=== PATIENT | male | born 1955 | race Caucasian/White ===

== ENCOUNTER → 2023-02-08 11:31 | Outpatient (CLI) | payer MEDICARE, OTHER, SELFPAY ==
--- NOTE | 2023-02-08 11:33 | DI.RAD.S_ITS ---
PROCEDURE: XR HIP W PEL IF DONE RT 2V INDICATIONS: right hip pain TECHNIQUE: AP pelvis with lateral view of the right hip. COMPARISON: None. FINDINGS: Bones: No acute fractures or dislocations. Pelvic ring appears intact. No suspicious bony lesions. Hhwe-mm-ywpgsume degenerative changes are seen in the hips bilaterally. Soft tissues: The visualized bowel gas pattern is normal. No suspicious soft tissue calcifications. IMPRESSION: Wkao-pu-fgedgetd symmetric osteoarthrosis of the hips bilaterally. Approved by: Jacoby Valdivia M.D. on 02/08/2023 at 14:50
--- NOTE | 2023-02-08 11:33 | DI.RAD.S_ITS ---
PROCEDURE: XR KNEE RT 3V INDICATIONS: right knee pain TECHNIQUE: Three views of the knee were acquired. COMPARISON: None. FINDINGS: Bones: No acute fractures or dislocations. No suspicious bony lesions. Moderate joint space narrowing is seen at the patellofemoral joint with mild lateral patellar subluxation. Soft tissues: No joint effusion. No suspicious soft tissue calcifications. IMPRESSION: Moderate osteoarthrosis involving the patellofemoral compartment. Mild lateral patellar subluxation. Approved by: Jacoby Valdivia M.D. on 02/08/2023 at 14:51
[2023-02-08 13:02] LABS: Hematocrit 43.7 % (41-53); Hemoglobin 14.7 g/dL (13.5-17.5); Mean Corpuscular HGB Conc 33.7 % (30-36); Platelet Count 225 X10^3/uL (150-400); Red Blood Cell Count 4.75 X10^6/uL (4.5-5.9); Red Cell Distribution Width 12.9 % (11.6-14.8); White Blood Cell Count 6.1 X10^3/uL (4.5-11.0)
[2023-02-08 13:24] LABS: Alanine Aminotransferase 31 IU/L (<50); Albumin 4.8 g/dL (3.5-5.0); Albumin Globulin Ratio 1.6 (1.0-2.8); Alkaline Phosphatase 75 U/L (38-126); Aspartate Aminotransferase 39 IU/L (17-59); BUN Creatinine Ratio 28.3 (6-22); Bilirubin Total 1.1 mg/dL (0.2-1.3); Blood Urea Nitrogen 28 mg/dL (9-20); Calcium 9.5 mg/dL (8.4-10.2); Carbon Dioxide 29 mmol/L (22-32); Chloride 102 mmol/L (98-107); Cholesterol 153 mg/dL (140-199); Estimated Glomerular Filt Rate > 60 mL/min (>60); Glucose 98 mg/dL (80-110); HDL Cholesterol 67 mg/dL (40-60); HEMOLYSIS < 15 (0-50); LDL Cholesterol Calculated 66 mg/dL (<100); Potassium 4.4 mmol/L (3.4-5.1); Sodium 138 mmol/L (137-145); Total Protein 7.8 g/dL (6.3-8.2); Triglycerides 99 mg/dL (35-150)
[2023-02-08 13:50] LABS: TSH w/ Reflex to FT4 3.96 uIU/mL (0.47-4.68)
[2023-02-10 07:15] LABS: Lipoprotein (a) 207.8 nmol/L (<75.0)
== END ==
PROVIDERS: PCP Internal Medicine; Referring Provider Internal Medicine; Visit Provider Internal Medicine
DX: M17.11 Unilateral primary osteoarthritis, right knee (principal); S83.011A Lateral subluxation of right patella, initial encounter; M16.0 Bilateral primary osteoarthritis of hip; E78.2 Mixed hyperlipidemia; R97.20 Elevated prostate specific antigen [PSA]; E78.41 Elevated Lipoprotein(a); I10 Essential (primary) hypertension
CPT/HCPCS: 36415; 73502; 73562; 80053; 80061; 83695; 84153; 84443; 85027

== ENCOUNTER 2023-07-03 11:50 | Emergency (ER) | payer MEDICARE, OTHER, SELFPAY ==
[2023-07-03 11:57] VITALS: BP 148/84; PULSE 84; RESP 16; TEMP 36.7; O2SAT 99; BMI 27.7
--- NOTE | 2023-07-03 12:21 | DI.RAD.S_ITS ---
PROCEDURE: XR LUMBAR SPINE 2-3V INDICATIONS: fall/pain TECHNIQUE: 3 views of the lumbar spine were acquired. COMPARISON: None. FINDINGS: Bones: Trace anterolisthesis of L4 on L5. Nubz-el-ealfnjbw degenerative changes with osteophytes, disc space height loss, and facet arthropathy. There may be pars defects at L5. No acute appearing vertebral body height loss. Soft tissues: Pelvic phleboliths. IMPRESSION: Sykz-ou-lisbxbox degenerative changes. Possible pars defects at L5. If there is high concern for further derangement, consider MRI evaluation. Dictated by: Oskar Polo M.D. on 07/03/2023 at 13:27 Approved by: Oskar Polo M.D. on 07/03/2023 at 13:28
--- NOTE | 2023-07-03 12:21 | DI.RAD.S_ITS ---
PROCEDURE: XR SACRUM COCCYX MIN 2V INDICATIONS: fall/pain TECHNIQUE: 3 views of the sacrum and coccyx acquired. COMPARISON: None. FINDINGS: Bones: No displaced fracture or dislocation. Soft tissues: Pelvic phleboliths. IMPRESSION: No acute radiographic abnormality. If there is high concern for occult injury, consider repeat radiography or cross-sectional imaging. Dictated by: Oskar Polo M.D. on 07/03/2023 at 13:28 Approved by: Oskar Polo M.D. on 07/03/2023 at 13:28
[2023-07-03 14:41] VITALS: BP 153/79; PULSE 76; RESP 18; O2SAT 99
--- NOTE | 2023-07-03 14:43 | ED.BACK ---
HPI - Back Pain/Injury <Nathan Perkins PA-C - Last Filed: 07/03/23 14:49> General Chief Complaint: Back Pain/Injury Stated Complaint: FELL DOWN STAIRS/TAILBONE INJ Time Seen by Provider: 07/03/23 13:55 Source: patient History of Present Illness HPI Narrative: 67-year-old male presents to the ED status post a mechanical fall sustained yesterday night. Patient states that he accidentally slipped and coming down a step, landing on his bottom and bounced for a couple steps. Patient complains of pain in the sacrum and feels a spasm in the muscles around it. Patient denies numbness, tingling, weakness, saddle paresthesias, urinary hesitancy, urinary incontinence, bowel incontinence. Patient states he has not taken any medicine for the pain. Patient states that the pain is worse when he is sitting and when he is changing positions from sitting to standing. Related Data Home Medications Medication Instructions Recorded Confirmed alirocumab 75 mg/mL subcutaneous 75 mg SUBCUT Q2W 02/08/23 02/08/23 pen injector (Praluent Pen) ezetimibe 10 mg tablet 10 mg PO DAILY 02/08/23 02/08/23 Allergies Allergy/AdvReac Type Severity Reaction Status Date / Time rosuvastatin [From Crestor] AdvReac Mild Muscle Pain Verified 02/08/23 10:35 simvastatin AdvReac Mild Muscle Pain Verified 02/08/23 10:35 Review of Systems <Nahtan Perkins PA-C - Last Filed: 07/03/23 14:49> Constitutional Constitutional: Denies chills, Denies fatigue, Denies fever(s), Denies frequent falls, Denies lethargy and Denies weakness Eyes Eyes: Denies change in vision, Denies eye discharge, Denies irritation and Denies loss of vision ENT Ears, Nose, Mouth, and Throat: Denies change in voice, Denies dizziness, Denies neck pain, Denies sore throat and Denies throat swelling Cardiovascular Cardiovascular: Denies chest pain, Denies irregular heart rhythm, Denies lightheadedness, Denies palpitations, Denies dyspnea, Denies dyspnea on exertion and Denies orthopnea Respiratory Respiratory: Denies cough, Denies dyspnea, Denies dyspnea on exertion and Denies wheezing Gastrointestinal Gastrointestinal: Denies abdominal pain, Denies change in bowel habits, Denies diarrhea, Denies nausea and Denies vomiting Musculoskeletal Musculoskeletal: Denies neck pain and Denies numbness Comments: Pain in the tailbone Integumentary/Breasts Skin/Breast: Denies pruritus, Denies erythema, Denies rash and Denies wounds Neurologic Neurologic: Denies behavioral changes, Denies confusion, Denies dizziness, Denies frequent falls, Denies loss of vision, Denies numbness and Denies weakness Psychiatric Psychiatric: Denies anxiety, Denies behavioral changes, Denies confusion, Denies depression, Denies homicidal ideation and Denies suicidal ideation Endocrine Endocrine: Denies fatigue, Denies flushing and Denies palpitations Hematologic/Lymphatic Hematologic/Lymphatic: Denies easy bruising Allergic/Immunologic Allergic/Immunologic: Denies urticaria, Denies throat swelling and Denies wheezing Patient History <Nathan Perkins PA-C - Last Filed: 07/03/23 14:49> Medical History Elevated prostate specific antigen (PSA) Primary osteoarthritis involving multiple joints Essential hypertension Elevated lipoprotein A level Mixed hyperlipidemia Social History details: , step-children, 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 Smoking Status: Never smoker Smoking Status: Never smoker alcohol intake frequency: 3 or more drinks per day Substance Use Type: does not use Exam <Nathan Perkins PA-C - Last Filed: 07/03/23 14:49> Narrative Exam Narrative: Const General:?cooperative, healthy appearing and comfortable [facility] Head:?normal to inspection Ears:?hearing grossly normal bilaterally Nose:?external nose normal Face and sinus:?normal facial exam and sinuses nontender Mouth:?oral mucosae normal Throat:?posterior oropharynx normal Eyes General:?appearance normal, both eyes and all related structures Neck Neck:?normal visual inspection and no lymphadenopathy noted Resp Effort & Inspection:?normal respiratory effort Auscultation:?clear to auscultation bilaterally Cardio Rate:?regular rate Rhythm:?regular rhythm Musculoskeletal No midline tenderness to palpation. There is full range of motion. Strength and sensation is intact. Patient is neurovascularly intact. Neuro General:?patient alert, patient awake and patient oriented x3 Initial Vital Signs Initial Vital Signs: Vital Signs Temperature 98.1 F 07/03/23 11:57 Pulse Rate 84 07/03/23 11:57 Respiratory Rate 16 07/03/23 11:57 Blood Pressure 148/84 H 07/03/23 11:57 Pulse Oximetry 99 07/03/23 11:57 Oxygen Delivery Method Room Air 07/03/23 11:57 <DO Joel Meléndez Last Filed: 07/11/23 00:30> Initial Vital Signs Initial Vital Signs: Vital Signs Temperature 98.1 F 07/03/23 11:57 Pulse Rate 84 07/03/23 11:57 Respiratory Rate 16 07/03/23 11:57 Blood Pressure 148/84 H 07/03/23 11:57 Pulse Oximetry 99 07/03/23 11:57 Oxygen Delivery Method Room Air 07/03/23 11:57 Course <Nathan Perkins PA-C - Last Filed: 07/03/23 14:49> Orders Ordered: ED Orders 07/03/23 12:21 XR lumbar spine 2-3V Stat XR sacrum coccyx min 2V Stat Vital Signs Vital signs: Vital Signs - 8 hr 07/03/23 11:57 Temperature 98.1 F Pulse Rate 84 Respiratory Rate 16 Blood Pressure 148/84 H Pulse Oximetry 99 Oxygen Delivery Method Room Air <DO Joel Meléndez Last Filed: 07/11/23 00:30> Orders Ordered: ED Orders 07/03/23 12:21 XR lumbar spine 2-3V Stat XR sacrum coccyx min 2V Stat Vital Signs Vital signs: Vital Signs - 8 hr 07/03/23 11:57 Temperature 98.1 F Pulse Rate 84 Respiratory Rate 16 Blood Pressure 148/84 H Pulse Oximetry 99 Oxygen Delivery Method Room Air MDM - Back Pain/Injury <DOMONIQUE Miller Last Filed: 07/03/23 14:49> MDM Narrative Medical decision making narrative: 67-year-old male presents to the ED status post a mechanical fall sustained yesterday night. Concern for fracture/dislocation versus musculoskeletal sprain/strain versus other. Obtained x-ray which shows no acute findings. Discussed findings with patient. Recommend ibuprofen, Tylenol, Flexeril. Prescribed Flexeril. Recommend follow-up with PCP as soon as possible. ED return precautions discussed with patient. Patient verbalized understanding. Medical records reviewed: Yes Discharge Plan Departure Patient Disposition: Home Clinical Impression: Lower back pain Qualifiers: Chronicity: acute Back pain laterality: unspecified Sciatica presence: without sciatica Qualified Code(s): M54.50 - Low back pain, unspecified Instructions: DI for Back Strain or Sprain Activity Restrictions/Additional Instructions: You were evaluated in the ED today for a lower back injury. Your x-ray does not show any fractures or dislocations. Your symptoms are likely due to a musculoskeletal sprain/strain. You may take Tylenol or ibuprofen for the pain. You are also being prescribed muscle relaxants that you may take for symptom relief. Please follow-up with your PCP as soon as possible. Return to the ED if you experience any worsening symptoms, numbness, tingling, weakness. Prescriptions: No Action ezetimibe 10 mg tablet 10 mg PO DAILY Praluent Pen 75 mg/mL pen injector 75 mg SUBCUT Q2W Referrals: Syed Borja MD [Primary Care Provider] - Stand Alone Forms: Patient Portal/API ED Sign-out <Gely Hardy DO - Last Filed: 07/11/23 00:30> Cosign ED Attending Chandrika Attestation: I was immediately available in the department for consultation.
== END 2023-07-03 14:49 | disposition home or self-care (01) ==
PROVIDERS: Emergency Provider Student in an Organized Health Care Education/Training Program; PCP Internal Medicine
DX: M54.50 Low back pain, unspecified (principal); W01.0XXA Fall on same level from slipping, tripping and stumbling without subsequent striking against object, initial encounter
CPT/HCPCS: 72100; 72220; 99281; 99283

== ENCOUNTER → 2023-08-13 15:35 | Outpatient (CLI) | payer MEDICARE, OTHER, SELFPAY ==
[2023-08-13 17:34] LABS: Hemoglobin A1C% w Est Avg Glu 5.5 % (4.0-6.0)
[2023-08-13 17:40] LABS: Glucose 89 mg/dL (80-110)
[2023-08-13 18:11] LABS: TSH w/ Reflex to FT4 3.42 uIU/mL (0.47-4.68)
[2023-08-13 21:44] LABS: Vitamin B12 432 pg/mL (239-931)
[2023-08-16 11:35] LABS: Albumin 3.9 g/dL (2.9-4.4); Alpha-1-Globulin 0.3 g/dL (0.0-0.4); Alpha-2-Globulin 0.6 g/dL (0.4-1.0); Globulin Total 2.9 g/dL (2.2-3.9); Protein, Total 6.8 g/dL (6.0-8.5)
== END ==
PROVIDERS: PCP Internal Medicine; Referring Provider Internal Medicine; Visit Provider Internal Medicine
DX: R77.9 Abnormality of plasma protein, unspecified (principal); R73.01 Impaired fasting glucose; E53.8 Deficiency of other specified B group vitamins
CPT/HCPCS: 36415; 82607; 82947; 83036; 84155; 84165; 84443

== ENCOUNTER → 2023-10-09 08:28 | Outpatient (CLI) | payer MEDICARE, OTHER, SELFPAY | PROVIDERS: PCP Internal Medicine; Referring Provider Internal Medicine Cardiovascular Disease; Visit Provider Internal Medicine Cardiovascular Disease | DX: I10 Essential (primary) hypertension (principal); I45.10 Unspecified right bundle-branch block; I44.0 Atrioventricular block, first degree | CPT/HCPCS: 36415; 83735 ==

== ENCOUNTER → 2023-11-26 13:50 | Outpatient (CLI) | payer MEDICARE, OTHER, SELFPAY ==
--- NOTE | 2023-11-26 13:51 | DI.ECHO.S_ITS ---
[facility] +---------+ [facility] +---------+ : : [address] : : : : [id number] : : : : Phone: [phone]+ Echocardiogram Report + + :Name: BALAJI CHOUDHARY Study Date: 11/26/2023 Height: 73 in : :[facility] ReadingLocation: Weight: 220 lb : : Gender: Male BSA: 2.2 m2 : :: 1955 Age: 68 yrs BP: 131/76 mmHg: :Reason For Study: ATRIOVENTRICULAR BLOCK : :Ordering Physician: HUMBERTO, : :ROCÍO Performed By: Trudy Davis : :Referring: ROCÍO PAUL : + + Interpretation Summary The left ventricle is normal in size and wall thickness. The left ventricular ejection fraction is normal. The ejection fraction is estimated to be 65-70%. The right ventricle is normal in size and function. No significant valvular pathology seen. The IVC is of normal diameter and collapses less than 50% with a sniff. This suggests a right atrial pressure of 8 mm Hg. Procedure: A two-dimensional transthoracic echocardiogram with color flow and Doppler was performed. The study quality was technically adequate. There is no prior echocardiogram noted for this patient. The patient was in sinus rhythm with heart rates between 63-68 bpm during the exam. Left Ventricle: The left ventricle is normal in size and wall thickness. There is no thrombus. The ejection fraction is estimated to be 65-70%. The left ventricular ejection fraction is normal. There are no focal wall motion abnormalities. Diastolic parameters suggest probable normal left ventricular diastolic function and normal filling pressures. Right Ventricle: The right ventricle is normal in size and function. Atria: The left atrial size is normal. Right atrial size is normal. There is no Doppler evidence for an interatrial shunt. Mitral Valve: The mitral valve leaflets are mildly calcified. There is mild mitral annular calcification. There is no mitral regurgitation noted. Aortic Valve: The aortic valve is trileaflet. The aortic valve opens well. The aortic valve is mildly calcified. There is discrete nodular thickening of the non- coronary cusp. There is no aortic valve stenosis. No aortic regurgitation is present. Tricuspid Valve: The tricuspid valve is normal in structure and function. Pulmonary artery pressures cannot be estimated because of the lack of a measurable TR jet velocity. There is a trace or physiologic amount of tricuspid regurgitation. Pulmonic Valve: The pulmonic valve leaflets are thin and pliable; valve motion is normal. There is no pulmonic valvular regurgitation. Great Vessels: The aortic root is normal size. The dimensions of the ascending aorta are normal. The IVC is of normal diameter and collapses less than 50% with a sniff. This suggests a right atrial pressure of 8 mm Hg. Pericardium/ Pleura There is no pericardial effusion. There is no pleural effusion. MMode/2D Measurements & Calculations LVIDd: 4.4 cm LVOT diam: 2.2 cm LVIDs: 2.7 cm Ao root diam: 3.4 cm FS: 39.6 % asc Aorta Diam: 3.5 cm IVSd: 0.70 cm Ao Arch Diam (Prox Trans): 3.2 cm LVPWd: 0.85 cm LV landeros. diameter/BSA (cm/m^2): 2.0 LV sys. diameter/BSA (cm/m^2): 1.2 LA A2 area: 17.1 cm2 RA long axis: 5.0 cm LA A4 area: 17.5 cm2 RA area: 17.6 cm2 LA length (vol): 5.3 cm RA vol: 52.6 ml LA vol: 48.0 ml RA : 23.5 ml/m2 LA vol index: 21.4 ml/m2 IVC diam: 2.1 cm RVD1 (basal): 3.2 cm RVD2 (mid): 2.9 cm TAPSE: 1.9 cm Doppler Measurements & Calculations Ao V2 max: 154.7 cm/sec LVOT Max Mikhail: 125.7 cm/sec Ao V2 mean: 112.2 cm/sec LV V1 max P.3 mmHg Ao max P.6 mmHg LV V1 VTI: 25.8 cm Ao mean P.5 mmHg IBAN(I,D): 3.3 cm2 Ao V2 VTI: 30.3 cm IBAN(V,D): 3.1 cm2 sev ratio: 0.85 IBAN indexed to BSA (cm^2/m^2): 1.5 MV E max mikhail: 94.5 cm/sec PA V2 max: 108.9 cm/sec MV A max mikhail: 71.7 cm/sec PA V2 mean: 79.7 cm/sec MV E/A: 1.3 PA mean P.7 mmHg Med Peak E' Mikhail: 9.8 cm/sec PA pr(Accel): 41.3 mmHg E/E' med: 9.6 Lat Peak E' Mikhail: 10.9 cm/sec E/E' lat: 8.7 E/e' average: 9.1 MV dec time: 0.23 sec SV(LVOT): 99.5 ml Reading Physician:03:59 PM
--- NOTE | 2023-11-26 13:52 | DI.NM.S_ITS ---
PROCEDURE: NM EXERCISE TREADMILL NON NUC COMPARISON: None INDICATIONS: Atrioventricular block, first degree FINDINGS: Rest ECG sinus rhythm, RBBB. Kirill protocol 8:30, maximum heart rate 161 bpm (107% peak predicted), maximum blood pressure 192/100, 10.1 METS, GENA -20%. Exercise ECG sinus tachycardia, 2.5 to 3 mm horizontal to downsloping ST segment depressions leads II, III, aVF, V3 to V6. Occasional PACs and PVCs noted in recovery. The patient did not complain of exercise-induced chest discomfort. IMPRESSION: Abnormal study. Exercise-induced ST segment changes consistent with inducible ischemia. Normal hemodynamic response. Very good exercise capacity. Dictated by: Andree Greco D.O. on 11/26/2023 at 16:55 Approved by: Andree Greco D.O. on 11/26/2023 at 17:03
== END ==
PROVIDERS: PCP Internal Medicine; Referring Provider Internal Medicine Cardiovascular Disease; Visit Provider Internal Medicine Cardiovascular Disease
DX: R93.1 Abnormal findings on diagnostic imaging of heart and coronary circulation (principal); I45.10 Unspecified right bundle-branch block; I44.0 Atrioventricular block, first degree; I34.81 Nonrheumatic mitral (valve) annulus calcification; R94.39 Abnormal result of other cardiovascular function study
CPT/HCPCS: 93017; 93306

== ENCOUNTER → 2024-02-05 15:15 | Outpatient (CLI) | payer MEDICARE, OTHER, SELFPAY ==
--- NOTE | 2024-02-05 15:47 | DI.NM.S_ITS ---
DATE OF SERVICE: 02/05/2024 Procedure: Exercise treadmill stress and rest myocardial perfusion imaging with gating to assess ejection fraction and regional wall motion. Ordering Provider: Madison Gamez MD Indications: The patient is a 68-year-old male with hyperlipidemia and elevated Lp(a), a strong family history of coronary disease, and an abnormal exercise treadmill stress test. Cardiac Stress: The patient was able to exercise for 8 minutes, 1 second on a standard Kirill protocol, suggesting good exercise capacity with a GENA of -14%, achieving 10.1 METS. He had a normal heart rate response to exercise, achieving a maximum heart rate of 157 BPM (105% of his predicted maximum), and a mild hypertensive blood pressure response with a resting blood pressure of 140/90 that increased to a maximum of 210/100. He had no chest discomfort but had significant dyspnea that limited his exercise. His resting ECG showed sinus rhythm with a RBBB and fairly normal ST segments. With stress, he developed significant downsloping ST depression in leads V2 through V5, less in V6 that persists into recovery. He had rare isolated PACs and PVCs but no complex ectopy. At 6 minutes and 30 seconds of exercise, at a heart rate of 147 BPM, 24.7 millicuries of technetium-99 Myoview was injected and he was imaged 15 minutes later using a gated SPECT acquisition protocol. Two days prior while at rest, he had been injected with 25.5 millicuries of technetium-99 Myoview and was imaged 15 minutes later, again using a gated SPECT acquisition protocol. Findings: 1. Raw data: There is fairly good myocardial tracer uptake. The lung/heart ratio is normal at 0.23 with a normal TID ratio of 0.94. 2. Quantitated gated SPECT: Post-stress ejection fraction is estimated at 79% without any focal wall motion abnormality and specifically the inferior wall has normal contractility. The resting ejection fraction is 80% with a normal resting end-diastolic volume of 85 mL. 3. Myocardial perfusion imaging: Post-stress supine images show a subtle defect in the proximal to mid inferior wall, extending slightly to the distal inferior wall, in a pattern consistent with diaphragmatic attenuation, supported by its complete resolution on the prone images, which reveal a normal perfusion pattern. There are no other perfusion defects. The resting images show a similar perfusion pattern to that of the post-stress images without any areas of improvement. Impression: 1. Normal myocardial perfusion study. 2. Subtle, fixed inferior defect that completely resolves on prone imaging, consistent with diaphragmatic attenuation artifact. There is no compelling evidence for any myocardial ischemia or previous myocardial infarction. 3. Normal left ventricular size and systolic function without any focal wall motion abnormality. 4. Good exercise capacity without angina although significant dyspnea and had significant ST-segment shifts and T-wave inversions with exercise that are nonspecific in the setting of a mild hypertensive blood pressure response. He had rare PACs and PVCs but no concerning arrhythmias. dd: 02/07/2024 17:17:00 dt: DICTATING MD/COPIES TO: Stepan Sheridan MD
--- NOTE | 2024-02-15 10:41 | DI.NM.S_ITS ---
DATE OF SERVICE: 02/05/2024 PROCEDURE: Exercise treadmill stress and rest myocardial perfusion imaging with gating to assess ejection fraction and regional wall motion. ORDERING PROVIDER: Madison Gamez MD INDICATIONS: The patient is a 68-year-old male with significant hyperlipidemia and elevated Lp(a) with a strong family history of coronary disease and an abnormal exercise treadmill stress test. CARDIAC STRESS: The patient was able to exercise for 8 minutes, 1 second on a standard Kirill protocol, suggesting good exercise capacity with a GENA of -14%, achieving 10.1 METS. He had a normal heart rate response to exercise, achieving a maximum heart rate of 157 BPM (105% of his predicted maximum) and a mild hypertensive blood pressure response with a resting blood pressure of 140/90 that increased to a maximum of 210/100. He had no chest discomfort although had significant dyspnea that limited his exercise. His resting ECG showed sinus rhythm with a RBBB and fairly normal ST segments. With stress, he developed significant downsloping ST depression in leads V2 through V5, less in V6 that persists into recovery. He had rare isolated PACs and PVCs but no complex ectopy. At 6 minutes and 30 seconds of exercise, at a heart rate of 147 BPM, 24.7 millicuries of technetium-99 Myoview was injected and he was imaged 15 minutes later using a gated SPECT acquisition protocol. Two days prior, he had been injected with 25.5 millicuries of technetium-99 Myoview and was imaged 15 minutes later, again using a gated SPECT acquisition protocol. FINDINGS: 1.Raw data: There was fairly good myocardial tracer uptake. The lung/heart ratio was normal at 0.23 with a normal TID ratio of 0.94. 2.Quantitated gated SPECT: Post-stress ejection fraction is estimated at 79% without any focal wall motion abnormality and specifically the inferior wall has normal contractility. The resting ejection fraction is 80% with a normal resting end-diastolic volume of 85 mL. 3.Myocardial perfusion imaging: Post-stress supine images show a subtle defect in the proximal to mid inferior wall, extending slightly to the distal inferior wall in a pattern consistent with diaphragmatic attenuation, supported by its complete resolution on the prone images, which reveal a normal perfusion pattern. There are no other perfusion defects. The resting images show a similar perfusion pattern to that of the post-stress images without any areas of improvement. IMPRESSION: 1.Normal myocardial perfusion study. 2.Subtle fixed inferior defect that completely resolves on prone imaging consistent with diaphragmatic attenuation artifact. There is no compelling evidence for any myocardial ischemia or previous myocardial infarction. 3.Normal left ventricular size and systolic function without any focal wall motion abnormality. 4.Good exercise capacity without angina although significant dyspnea. He again had significant ST-segment shifts and T-wave inversions with exercise and had a mild hypertensive blood pressure response that makes the ECG abnormalities less specific. He had rare PACs and PVCs but no concerning arrhythmias. Jf Cotto - /gilma/AY doc#: [id number]/job#: [id number] dd: 02/07/2024 17:17:00 dt: 02/07/2024 22:09:00 DICTATING MD/COPIES TO: Stepan Sheridan MD; Madison Gamez MD COPIES MNE: VANE;
== END ==
PROVIDERS: PCP Internal Medicine; Referring Provider Internal Medicine Interventional Cardiology; Visit Provider Internal Medicine Interventional Cardiology
DX: R94.39 Abnormal result of other cardiovascular function study (principal); R79.89 Other specified abnormal findings of blood chemistry; E78.5 Hyperlipidemia, unspecified; Z82.49 Family history of ischemic heart disease and other diseases of the circulatory system
CPT/HCPCS: 78452; 93017; A9502

== ENCOUNTER → 2024-04-12 10:12 | Outpatient (CLI) | payer MEDICARE, OTHER, SELFPAY ==
--- NOTE | 2024-04-12 10:14 | DI.MRI.S_ITS ---
PROCEDURE: MR KNEE RT WO CON INDICATIONS: UNILAT PRIMARY OSTEOARTHRITIS RT KNEE TECHNIQUE: Noncontrast sagittal PD fast spin echo and T2 fast spin echo with fat saturation, sagittal 3-D FLASH with fat saturation; coronal T1 spin echo and PD fast spin echo with fat saturation, and axial PD fast spin echo with fat saturation through the knee. COMPARISON: [facility], CR, XR KNEE 4+ VIEWS RIGHT, 03/19/2024, 9:00. FINDINGS: Image quality: Excellent. Anterior cruciate ligament: Mild fluid signal within the anterior cruciate ligament is suspicious for a remote prior low-grade partial tear. The bulk of the ligament fibers remain in continuity. Posterior cruciate ligament: Intact. Medial collateral ligament: Mild thickening of the proximal medial collateral ligament without surrounding edema is consistent with remote prior low-grade sprain. Lateral collateral ligament: Intact. Medial meniscus: There is complex tearing of the medial meniscus. Shallow radial and vertical longitudinal components are seen at the posterior horn and body. There is a centrally displaced meniscal flap component adjacent to the posterior root attachment extending into the intercondylar notch. Suspected shallow free edge tearing at the anterior horn. Lateral meniscus: Mild intrasubstance degeneration is seen that does not meet criteria for a meniscal tear. Medial and lateral tendons: The semimembranosus tendon insertions appear intact. Visualized portions of the pes anserinus tendons appear normal. The popliteus tendon is intact. Iliotibial band appears normal. Anterior structures: The quadriceps and patellar tendons appear intact. Congenitally shallow trochlear groove with lateral patellar tilting and mild lateral patellar subluxation. The tibial tubercle-trochlear groove distance is borderline at 1.9 cm. No edema in the infrapatellar fat pad. Bones and cartilage: No bone marrow contusions or fractures. Medial femorotibial cartilage: Moderate grade partial thickness cartilage thinning irregularity is seen in the weight-bearing portion of the medial femorotibial compartment with small marginal osteophytes. Lateral femorotibial cartilage: Mild partial-thickness cartilage irregularity and small marginal osteophytes. Patellofemoral cartilage: Full-thickness cartilage loss at the lateral femoral trochlea and lateral patellar facet with subchondral cystic changes and small marginal osteophytes. Soft tissues: Moderate joint effusion is present. 5 mm hypointense loose body is seen posterior to the medial femoral metaphysis. Possible 5 mm chondral loose body anterolateral to the lateral femoral tibial joint line. IMPRESSION: 1. Complex tearing of the medial meniscus with radial and vertical longitudinal components. A displaced meniscal flap fragment is seen at the posterior root attachment extending into the intercondylar notch. 2. Intrasubstance degeneration in the lateral meniscus without a discrete tear. 3. Suspected chronic low-grade partial tearing of the anterior cruciate ligament. The bulk of the ligament fibers are intact. 4. Remote prior low-grade sprain of the proximal medial collateral ligament. 5. Full-thickness cartilage loss in the patellofemoral compartment with subchondral cystic changes and edema. Grade 2-3 chondromalacia is seen in the medial femorotibial compartment and there is grade 2 chondromalacia in the lateral compartment. Small tricompartmental marginal osteophytes. 6. Congenitally shallow trochlear groove with lateral patellar tilting and mild lateral patellar subluxation. No signs of recent patellar instability. 7. Moderate joint effusion. 5 mm intra-articular loose body is seen posterior to the medial femoral metaphysis. Possible additional small chondral loose bodies. Approved by: Jacoby Valdivia M.D. on 04/14/2024 at 18:28
== END ==
LOC: MRI 10:13
PROVIDERS: PCP Internal Medicine; Referring Provider Orthopaedic Surgery; Visit Provider Orthopaedic Surgery
DX: S83.231A Complex tear of medial meniscus, current injury, right knee, initial encounter (principal); S83.011A Lateral subluxation of right patella, initial encounter; S83.411A Sprain of medial collateral ligament of right knee, initial encounter; M17.11 Unilateral primary osteoarthritis, right knee; M94.261 Chondromalacia, right knee; M25.461 Effusion, right knee
CPT/HCPCS: 73721

== ENCOUNTER 2024-04-22 09:51 | Day surgery (SDC) | payer MEDICARE, OTHER, SELFPAY ==
[2024-04-22] MEDS: ACETAMINOPHEN 325 MG TABLET 975 MG PO (10:25)
[2024-04-22 10:36] VITALS: BMI 28.3
[2024-04-22 10:45] VITALS: BP 139/84; PULSE 54; RESP 18; TEMP 36.4; O2SAT 100
[2024-04-22] MEDS: LACTATED RINGERS 1,000 ML 42 ML IV (10:49)
--- NOTE | 2024-04-22 13:02 | PM.PREOP ---
Pre-operative Note Interval Note History & Physical reviewed/Exam performed by Physician: Yes Changes to H&P: No
--- NOTE | 2024-04-22 13:03 | PM.OP.1 ---
Operative Date/Time/Diagnoses Date of procedure: 04/22/24 Time of procedure: 13:10 Pre-op diagnosis: Right knee medial meniscus tear, loose body Post-op diagnosis: same Procedure & Clinicians Procedure: Right knee arthroscopy with partial medial meniscectomy, right knee arthroscopy removal of loose body Same procedure as scheduled: Yes Indications: This is a 68-year-old gentleman with ongoing significant right knee medial joint line pain. He injured himself playing pickleball. He is having problems with mechanical popping clicking and locking. He had an MRI scan which showed evidence of a medial meniscus tear. He was brought to the operating room for right knee arthroscopy with partial medial meniscectomy and repair as indicated. Surgeon: Ayaka Lara Click Yes if Unassisted: Yes Anesthesia Type: General Operative Notes Findings: Complex tear in the medial meniscus which extended from the middle 3rd into the posterior horn of the medial meniscus with a grossly unstable flap, loose body in the posterior medial aspect of the knee, mild degenerative tearing of the lateral meniscus, normal ACL, up to grade 2 chondromalacia in the trochlear groove and a tibial plateau and lateral femoral condyle, medial compartment up to grade 3 chondromalacia of the medial femoral condyle Closure Type: primary Specimen(s): none sent Estimated Blood Loss (mL): 5 Blood products transfused: none Procedure in detail: The patient was brought to the operating room. A time-out was performed. He was given IV antibiotics. He underwent the induction of a general anesthesia. He was carefully positioned on the operative table and prepped and draped in standard sterile fashion. His right knee was carefully examined. His examination under anesthesia showed he was stable at 0, 45, and 90?. A 3 portal arthroscopy was performed. The knee was insufflated with normal saline. Scope was inserted initially in the lateral portal. Diagnostic arthroscopy was performed with intraoperative findings as follows: 1. Suprapatellar pouch to. Patellofemoral joint 3. Medial compartment 4. Notch 5. Lateral compartment. The majority of the pathology was in the medial compartment. The medial meniscus had a complex tear. The meniscus had an unstable flap fragment. Shaver and baskets were used to perform a partial medial meniscectomy resecting only grossly loose meniscal tissue. In the posterior medial aspect of the knee there was a about a 0.5 cm osteochondral loose body in the posterior aspect of the knee. This was meticulously removed with a grasper. There was a very grossly unstable medial meniscus with multiple fragments of the medial meniscus which were easily subluxable into the medial compartment. A shaver was used to resect multiple flaps of meniscus back to stable meniscal rim. The knee was meticulously irrigated with normal saline. The knee was closed with interrupted nylon and Steri-Strips. Marcaine was injected. The wound was dressed sterilely. Patient tolerated the procedure well and was transferred to recovery room in satisfactory condition. Complications: none Post-operative Condition: stable Disposition: same day surgery Plan for aftercare: Weight-bearing as tolerated right lower extremity. Use ice. Suture removal at about 10 days postoperatively.
[2024-04-22] MEDS: CEFAZOLIN 2 GM/100 ML PREMIX 100 ML IV (13:08)
--- NOTE | 2024-04-22 13:27 | SUR.OPER ---
Lithotomy on padded OR bed, head on pillow, arms secured on padded arm boards at <90 degrees abduction. Non-operative left Leg secured in padded yellow fins stirrups. Right leg with tourniquet in leg carreon hanging free and under control of surgeon.
[2024-04-22] MEDS: BUPIVACAINE 0.5% (PF) 30 ML, EPINEPHrine 0.15 MG INJ (13:41)
[2024-04-22 14:09] VITALS: BP 145/82; PULSE 56; RESP 16; TEMP 36.8; O2SAT 98
[2024-04-22 14:14] VITALS: BP 140/80; PULSE 59; RESP 15; TEMP 36.6; O2SAT 98
[2024-04-22 14:21] VITALS: BP 137/68; PULSE 57; RESP 23; TEMP 36.6; O2SAT 98
[2024-04-22 14:30] VITALS: BP 135/80; PULSE 68; RESP 14; TEMP 36.6; O2SAT 98
== END 2024-04-22 14:45 | disposition home or self-care (01) ==
PROVIDERS: PCP Internal Medicine; Referring Provider Orthopaedic Surgery; Visit Provider Orthopaedic Surgery
PROC: (CPT 29870; principal; 2024-04-22 11:45)
DX: S83.231A Complex tear of medial meniscus, current injury, right knee, initial encounter (principal); M23.41 Loose body in knee, right knee; M94.261 Chondromalacia, right knee; Y93.69 Activity, other involving other sports and athletics played as a team or group
CPT/HCPCS: 29881; J0171; J0690; J1100; J2405; J2704; J3010

== ENCOUNTER → 2024-12-26 09:02 | Outpatient (CLI) | payer MEDICARE, OTHER, SELFPAY ==
[2024-12-26 11:21] LABS: Aspartate Aminotransferase 36 IU/L (17-59); BUN Creatinine Ratio 17.3 (6-22); Blood Urea Nitrogen 19 mg/dL (9-20); Calcium 9.7 mg/dL (8.4-10.2); Carbon Dioxide 27 mmol/L (22-32); Chloride 105 mmol/L (98-107); Cholesterol 164 mg/dL (140-199); Estimated Glomerular Filt Rate > 60 mL/min (>60); Glucose 95 mg/dL (70-99); HDL Cholesterol 54 mg/dL (40-60); HEMOLYSIS < 15 (0-50); LDL Cholesterol Calculated 95 mg/dL (<100); Sodium 138 mmol/L (137-145); Triglycerides 75 mg/dL (35-150)
[2024-12-26 11:23] LABS: Potassium 5.4 mmol/L (3.4-5.1)
[2024-12-26 11:48] LABS: Prostate Specific Antigen 6.65 ng/mL (0.10-4.00)
== END ==
PROVIDERS: PCP Internal Medicine; Referring Provider Internal Medicine; Visit Provider Internal Medicine
DX: I10 Essential (primary) hypertension (principal); E78.41 Elevated Lipoprotein(a); E78.2 Mixed hyperlipidemia
CPT/HCPCS: 36415; 80048; 80061; 83695; 84153; 84450

== ENCOUNTER → 2025-03-27 07:48 | Outpatient (CLI) | payer MEDICARE, OTHER, SELFPAY ==
[2025-03-27 08:47] LABS: Alanine Aminotransferase 22 IU/L (<50); Albumin 4.5 g/dL (3.5-5.0); Albumin Globulin Ratio 1.9 (1.0-2.8); Alkaline Phosphatase 64 U/L (38-126); Blood Urea Nitrogen 22 mg/dL (9-20); Calcium 9.7 mg/dL (8.4-10.2); Carbon Dioxide 26 mmol/L (22-32); Chloride 105 mmol/L (98-107); Cholesterol 107 mg/dL (140-199); Estimated Glomerular Filt Rate > 60 mL/min (>60); Globulin 2.4 g/dL (1.7-4.1); Glucose 104 mg/dL (70-99); HDL Cholesterol 60 mg/dL (40-60); HEMOLYSIS < 15 (0-50); Potassium 4.6 mmol/L (3.4-5.1); Sodium 138 mmol/L (137-145); Total Protein 6.9 g/dL (6.3-8.2); Triglycerides 85 mg/dL (35-150)
[2025-03-27 09:38] LABS: Vitamin B12 Reflex MMA if <400 360 pg/mL (239-931)
[2025-03-31 07:13] LABS: PSA, Total 7.3 ng/mL (0.0-4.0)
== END ==
PROVIDERS: PCP Internal Medicine; Referring Provider Internal Medicine Cardiovascular Disease; Visit Provider Internal Medicine Cardiovascular Disease
DX: E78.00 Pure hypercholesterolemia, unspecified (principal); E53.8 Deficiency of other specified B group vitamins; R97.20 Elevated prostate specific antigen [PSA]
CPT/HCPCS: 36415; 80053; 80061; 82607; 83921; 84153; 84154

== ENCOUNTER → 2025-05-12 11:54 | Outpatient (CLI) | payer MEDICARE, OTHER, SELFPAY ==
--- NOTE | 2025-05-12 11:56 | DI.MRI.S_ITS ---
PROCEDURE: MR CERVICAL SPINE WO CON INDICATIONS: Cervical spondylosis TECHNIQUE: Noncontrast sagittal T1 spin echo and T2 fast spin echo, sagittal STIR, foraminal oblique sagittal T2 fast spin echo, and axial gradient echo or T2 fast spin echo through the cervical spine. COMPARISON: [facility], CR, XR CERVICAL SPINE WITH FLEXION EXTENSION, 04/21/2025, 13:05. FINDINGS: Image quality: Excellent. Alignment and Curvature: There is normal bony alignment. Bone Marrow: Modic endplate changes type 1 at C3-C4. Partial osseous fusion the C2-3 vertebral body anteriorly at the uncovertebral joints and osseous fusion of the C2-C3 facets on the right. Spinal Cord: Visualized spinal cord has normal size and signal. No cerebellar tonsillar herniation. Paraspinous Soft Tissues: No paravertebral masses. Prevertebral soft tissues are normal in thickness. C2-C3: Severe uncovertebral degeneration and posterior disc bulge. Severe left facet arthropathy and ankylosis of the right facet. Moderate left foraminal stenosis and no right foraminal stenosis. Mild central canal stenosis. C3-C4: Uncovertebral deep and facet degenerative change bilaterally with moderate spinal canal stenosis, mild right and severe left foraminal stenosis. C4-C5: Uncovertebral and facet hypertrophy with severe right and left foraminal stenosis. Mild spinal canal stenosis. C5-C6: Uncovertebral hypertrophy with moderate right and left foraminal stenosis. Mild spinal canal stenosis. C6-C7: Mild uncovertebral hypertrophy. No spinal canal stenosis. Moderate foraminal stenosis on the right mild foraminal stenosis on the left. C7-T1: Normal appearance. IMPRESSION: Multilevel degenerative changes as above. Partial osseous fusion at C2-C3 may be sequelae of inflammatory arthritis. Dictated by: Mikhail Lemons M.D. on 05/12/2025 at 17:32 Approved by: Mikhail Lemons M.D. on 05/12/2025 at 17:41
== END ==
LOC: MRI 11:54
PROVIDERS: PCP Internal Medicine; Referring Provider Internal Medicine; Visit Provider Physician Assistant Surgical
DX: S16.1XXA Strain of muscle, fascia and tendon at neck level, initial encounter (principal); M43.22 Fusion of spine, cervical region; M47.812 Spondylosis without myelopathy or radiculopathy, cervical region; X58.XXXA Exposure to other specified factors, initial encounter
CPT/HCPCS: 72141

== ENCOUNTER → 2025-07-30 08:32 | Outpatient (CLI) | payer MEDICARE, OTHER, SELFPAY ==
[2025-07-31 12:12] LABS: PSA, Total 8.2 ng/mL (0.0-4.0)
== END ==
PROVIDERS: PCP Internal Medicine; Referring Provider Internal Medicine; Visit Provider Internal Medicine
DX: R97.20 Elevated prostate specific antigen [PSA] (principal)
CPT/HCPCS: 36415; 84153; 84154

== ENCOUNTER → 2025-08-25 10:36 | Outpatient (CLI) | payer MEDICARE, OTHER, SELFPAY ==
--- NOTE | 2025-08-25 10:38 | DI.RAD.S_ITS ---
PROCEDURE: XR LUMBAR SPINE MIN 4V INDICATIONS: low back pain TECHNIQUE: 5 views of the lumbar spine acquired, including flexion and extension views. COMPARISON: None. FINDINGS: Bones: 5 nonrib-bearing vertebrae are present. There is normal bony alignment. No vertebral body compression fractures. No suspicious bony lesions. Multilevel disc space narrowing and degenerative endplate changes. Multilevel facet hypertrophy. Soft tissues: Overlying bowel gas pattern is normal. No suspicious soft tissue calcifications. Flexion/extension: There is reduced range of motion, with preserved alignment. IMPRESSION: 1. Moderate multilevel lumbar spondylosis. 2. Reduced range of motion on flexion/extension images without abnormal subluxation. Approved by: Jacoby Valdivia M.D. on 08/25/2025 at 17:21
== END ==
PROVIDERS: PCP Internal Medicine; Referring Provider Physical Medicine & Rehabilitation; Visit Provider Physical Medicine & Rehabilitation
DX: M54.50 Low back pain, unspecified (principal); M47.816 Spondylosis without myelopathy or radiculopathy, lumbar region
CPT/HCPCS: 72110